=== PATIENT | female | born 1950 | race Caucasian/White ===

== ENCOUNTER 2020-10-04 13:39 | Observation (INO) ==
[2020-10-04 14:43] LABS: Hematocrit 32.5 % (35.3-44.9); Hemoglobin 10.6 g/dL (11.5-15.4); Mean Corpuscular HGB Conc 32.6 g/dL (31.6-35.5); Mean Corpuscular Hemoglobin 29.9 pg (28.0-33.3); Mean Corpuscular Volume 91.5 fL (83.0-100.0); Mean Platelet Volume 9.1 fL (9.4-12.4); Platelet Count 435 K/mcL (140-400); Red Blood Count 3.55 M/mcL (3.82-4.97); Red Cell Distribution Width 15.5 % (11.5-14.5)
[2020-10-04 15:04] LABS: BUN/Creatinine Ratio 21 (6-26); Blood Urea Nitrogen 24 mg/dL (8-23); Calcium 9.3 mg/dL (8.6-10.3); Carbon Dioxide 22 mEq/L (23-29); Chloride 107 mEq/L (98-107); Glucose 116 mg/dL (70-105); Osmolality,Calculated 287 (280-300); Potassium 4.6 mEq/L (3.5-5.1); Sodium 136 mEq/L (136-145); eGFR For African Americans 56 (> 60); eGFR For Non-African Americans 46 (> 60)
[2020-10-04 15:12] LABS: Troponin I < 0.03 ng/mL (< 0.04)
[2020-10-04 16:49] LABS: Bacteria,Urine Few per hpf (None-Few); Bilirubin,Urine Negative (Negative); Blood,Urine Negative (Negative); Clarity,Urine Clear (Clear); Color,Urine Light-Yellow (Yellow); Glucose,Urine (UA) Normal (Normal); Ketones,Urine Negative (Negative); Leukocyte Esterase,Urine Negative (Negative); Mucus,Urine Few per lpf (None-Few); Nitrite,Urine Positive (Negative); Protein,Urine Negative (Neg-Trace); RBC,Urine 0-3 per hpf (0-3); Specific Gravity,Urine 1.013 (1.010-1.025); Squamous Epithelial Cell,Urine Few per hpf (None-Few); Urobilinogen,Urine Normal (Normal)
[2020-10-04] MEDS ORDERED: Naloxone 0.4 MG/ML INJ IVP PRN (17:26)
[2020-10-04] MEDS ORDERED: Acetaminophen 325 MG TABLET PO PRN (17:56)
[2020-10-04] MEDS ORDERED: Perflutren Lipid Microsphere 1.3 ML in 0.9 % Sodium Chloride 8.7 ML IVP PRN (18:03)
[2020-10-04] MEDS: cefTRIAXone 1,000 MG in Water for inj. (sterile) 10 ML IVP SCH (18:30)
[2020-10-04] MEDS: Aspirin 81 MG TAB.CHEW PO SCH (18:31)
[2020-10-04] MEDS: Nicotine 7 MG PATCH.TD24 TD SCH ×2 (18:31→20:56)
[2020-10-04] MEDS: *HR* HYDROcodone/Acet 5/325 mg TABLET PO PRN (20:56)
[2020-10-05 05:32] LABS: Basophils # 0.1 K/mcL (0.0-0.2); Basophils % 0.7 %; Eosinophils # 0.4 K/mcL (0.0-0.6); Eosinophils % 4.5 %; Hematocrit 30.4 % (35.3-44.9); Hemoglobin 10.2 g/dL (11.5-15.4); Immature Granulocytes % 0.7 % (0-4); Lymphocytes % 35.2 %; Mean Corpuscular HGB Conc 33.6 g/dL (31.6-35.5); Mean Corpuscular Hemoglobin 30.3 pg (28.0-33.3); Mean Corpuscular Volume 90.2 fL (83.0-100.0); Mean Platelet Volume 9.1 fL (9.4-12.4); Monocytes % 11.2 %; Platelet Count 432 K/mcL (140-400); Red Blood Count 3.37 M/mcL (3.82-4.97); Red Cell Distribution Width 15.4 % (11.5-14.5); Segmented Neutrophils % 47.7 %; White Blood Count 8.5 K/mcL (4.3-11.1)
[2020-10-05 05:49] LABS: Calcium 9.1 mg/dL (8.6-10.3); Chol/HDL Ratio 2.2 (0-4.9); Potassium 4.4 mEq/L (3.5-5.1)
[2020-10-05] MEDS: Aspirin 81 MG TAB.CHEW PO SCH (08:53)
[2020-10-05] MEDS: cefTRIAXone 1,000 MG in Water for inj. (sterile) 10 ML IVP SCH (08:53)
[2020-10-05] MEDS ORDERED: Gadolinium Contrast Agent (WT Based) IV PRN (08:59)
[2020-10-05 09:01] LABS: Estimated Average Glucose 131 mg/dl; Hemoglobin A1C 6.2 %
[2020-10-05] MEDS ORDERED: GADOBUTROL 30 MMOL/30 ML VIAL IVP ONE (09:27)
[2020-10-05] MEDS: *HR* HYDROcodone/Acet 5/325 mg TABLET PO PRN ×2 (11:35→21:47)
[2020-10-05] MEDS: Nicotine 21 MG PATCH.TD24 TD SCH (20:37)
[2020-10-06 02:33] VITALS: TEMP 98.3
[2020-10-06] MEDS ORDERED: Melatonin 3 MG TABLET PO SCH (03:00)
[2020-10-06] MEDS: *HR* HYDROcodone/Acet 5/325 mg TABLET PO PRN ×2 (05:53→11:25)
[2020-10-06] MEDS ORDERED: *HR* Enoxaparin 40 MG/0.4 ML SYRINGE SQ SCH (06:00)
[2020-10-06] MEDS: Aspirin 81 MG TAB.CHEW PO SCH (08:17)
[2020-10-06] MEDS: Nicotine 21 MG PATCH.TD24 TD SCH (08:18)
[2020-10-06] MEDS: cefTRIAXone 1,000 MG in Water for inj. (sterile) 10 ML IVP SCH (08:20)
[2020-10-06] MEDS ORDERED: hydroCHLOROthiazide 25 MG TABLET PO SCH (09:00)
[2020-10-06] MEDS ORDERED: lisinopriL 20 MG TABLET PO SCH (09:00)
[2020-10-06 10:35] VITALS: BP 117/78; PULSE 93; O2SAT 97
== END 2020-10-06 15:06 | disposition home or self-care (01) ==
LOC: 3BNU 13:39 → EMEROOARM 13:39 → SUATTDRO 15:56 → 3BNU 17:22
PROVIDERS: ADMIT Internal Medicine; ATTEND Registered Nurse

== ENCOUNTER 2020-12-28 15:12 | Inpatient (IN) ==
[2020-12-28 17:09] LABS: Bacteria,Urine Few per hpf (None-Few); Bilirubin,Urine Negative (Negative); Blood,Urine Negative (Negative); Clarity,Urine Clear (Clear); Color,Urine Light-Yellow (Yellow); Glucose,Urine (UA) Normal (Normal); Ketones,Urine Negative (Negative); Leukocyte Esterase,Urine Small (Negative); Mucus,Urine Few per lpf (None-Few); Nitrite,Urine Negative (Negative); Protein,Urine Negative (Neg-Trace); RBC,Urine 0-3 per hpf (0-3); Specific Gravity,Urine 1.016 (1.010-1.025); Squamous Epithelial Cell,Urine Few per hpf (None-Few); Urobilinogen,Urine Normal (Normal)
[2020-12-28 17:12] LABS: Basophils # 0.1 K/mcL (0.0-0.2); Basophils % 0.7 %; Eosinophils # 0.4 K/mcL (0.0-0.6); Eosinophils % 3.6 %; Hematocrit 38.4 % (35.3-44.9); Hemoglobin 12.5 g/dL (11.5-15.4); Immature Granulocytes % 0.5 % (0-4); Lymphocytes # 3.6 K/mcL (0.6-4.6); Lymphocytes % 35.5 %; Mean Corpuscular HGB Conc 32.6 g/dL (31.6-35.5); Mean Corpuscular Volume 89.1 fL (83.0-100.0); Monocytes # 0.9 K/mcL (0.0-1.3); Monocytes % 8.8 %; Neutrophils # 5.2 K/mcL (1.6-8.9); Platelet Count 416 K/mcL (140-400); Red Blood Count 4.31 M/mcL (3.82-4.97); Red Cell Distribution Width 13.8 % (11.5-14.5); Segmented Neutrophils % 50.9 %; White Blood Count 10.1 K/mcL (4.3-11.1)
[2020-12-28 17:28] LABS: BUN/Creatinine Ratio 16 (6-26); Blood Urea Nitrogen 18 mg/dL (8-23); Calcium 9.7 mg/dL (8.6-10.3); Carbon Dioxide 24 mEq/L (23-29); Chloride 101 mEq/L (98-107); Glucose 101 mg/dL (70-105); Osmolality,Calculated 280 (280-300); Potassium 4.2 mEq/L (3.5-5.1); Sodium 134 mEq/L (136-145); Troponin I < 0.03 ng/mL (< 0.04); eGFR For African Americans 59 (> 60); eGFR For Non-African Americans 48 (> 60)
[2020-12-28] MEDS: Nicotine 21 MG PATCH.TD24 TD SCH (21:07)
[2020-12-28] MEDS ORDERED: Ondansetron ODT 4 MG TAB.RAPDIS SL PRN (22:54)
[2020-12-28] MEDS ORDERED: Naloxone 0.4 MG/ML INJ IVP PRN (22:54)
[2020-12-28] MEDS ORDERED: Acetaminophen 325 MG TABLET PO PRN (22:54)
[2020-12-28] MEDS ORDERED: Melatonin 3 MG TABLET PO PRN (22:54)
[2020-12-28] MEDS ORDERED: Aspirin 81 MG TAB.CHEW PO ONE (23:04)
[2020-12-28] MEDS ORDERED: Perflutren Lipid Microsphere 1.3 ML in 0.9 % Sodium Chloride 8.7 ML IVP PRN (23:06)
[2020-12-28] MEDS ORDERED: Isovue-370 500 ML BOTTLE IVP ONE (23:13)
[2020-12-29] MEDS ORDERED: D5% in Water 1,000 ML IVC PRN (00:21)
[2020-12-29] MEDS ORDERED: *HR* Dextrose 50 % in Water (Syg) 50 ML SYRINGE IVP PRN (00:21)
[2020-12-29] MEDS ORDERED: Dextrose Gel 15 GM/37.5 ML TUBE PO PRN ×2 (00:21)
[2020-12-29 01:27] LABS: Hematocrit 38.5 % (35.3-44.9); Hemoglobin 12.6 g/dL (11.5-15.4); Mean Corpuscular HGB Conc 32.7 g/dL (31.6-35.5); Mean Corpuscular Hemoglobin 29.4 pg (28.0-33.3); Mean Corpuscular Volume 89.7 fL (83.0-100.0); Mean Platelet Volume 9.7 fL (9.4-12.4); Platelet Count 390 K/mcL (140-400); Red Blood Count 4.29 M/mcL (3.82-4.97); White Blood Count 9.4 K/mcL (4.3-11.1)
[2020-12-29 01:37] LABS: Prothrombin Time 11.1 Seconds (9.4-12.1)
[2020-12-29 01:42] LABS: Alanine Aminotransferase 11 Units/L (7-52); Albumin 4.2 g/dL (3.5-5.7); Albumin/Globulin Ratio 1.6 (1.1-2.2); Alkaline Phosphatase 56 Units/L (34-104); Aspartate Amino Transferase 19 Units/L (13-39); BUN/Creatinine Ratio 16 (6-26); Bilirubin,Total 0.5 mg/dL (0.3-1.0); Blood Urea Nitrogen 17 mg/dL (8-23); Calcium 9.8 mg/dL (8.6-10.3); Carbon Dioxide 21 mEq/L (23-29); Chloride 102 mEq/L (98-107); Chol/HDL Ratio 2.1 (0-4.9); Cholesterol 128 mg/dL (< 200); Globulin 2.7 g/dL (2.4-3.5); Glucose 89 mg/dL (70-105); HDL Cholesterol 62 mg/dL (40-59); LDL Cholesterol,Calculated 43 mg/dL (< 100); Magnesium 2.1 mg/dL (1.6-2.6); Osmolality,Calculated 281 (280-300); Phosphorous 3.7 mg/dL (2.7-4.5); Potassium 4.1 mEq/L (3.5-5.1); Sodium 135 mEq/L (136-145); Total Protein 6.9 g/dL (6.4-8.9); Triglycerides 115 mg/dL (< 150); eGFR For African Americans > 60 (> 60); eGFR For Non-African Americans 52 (> 60)
[2020-12-29] MEDS ORDERED: *HR* Heparin 5,000 UNIT/ML VIAL SQ SCH (01:45)
[2020-12-29 01:54] LABS: Thyroid Stimulating Hormone 10.146 mcIU/mL (0.340-5.600)
[2020-12-29 02:04] LABS: Folate 13.2 ng/mL (3.0-16.0)
[2020-12-29] MEDS: 0.9 % Sodium Chloride 1,000 ML IVC SCH ×2 (02:10→12:45)
[2020-12-29 08:52] LABS: Estimated Average Glucose 131 mg/dl; Hemoglobin A1C 6.2 %
[2020-12-29] MEDS: Nicotine 21 MG PATCH.TD24 TD SCH (10:23)
[2020-12-29] MEDS: Aspirin Enteric Coated 81 MG Tablet PO SCH (10:23)
[2020-12-29] MEDS ORDERED: Gabapentin 100 MG CAPSULE PO SCH (21:00)
[2020-12-30 01:16] LABS: Basophils # 0.1 K/mcL (0.0-0.2); Basophils % 0.8 %; Eosinophils # 0.4 K/mcL (0.0-0.6); Eosinophils % 4.4 %; Hematocrit 36.5 % (35.3-44.9); Hemoglobin 11.9 g/dL (11.5-15.4); Immature Granulocytes % 0.3 % (0-4); Lymphocytes # 3.1 K/mcL (0.6-4.6); Lymphocytes % 35.4 %; Mean Corpuscular HGB Conc 32.6 g/dL (31.6-35.5); Mean Corpuscular Hemoglobin 29.5 pg (28.0-33.3); Mean Corpuscular Volume 90.3 fL (83.0-100.0); Monocytes # 0.8 K/mcL (0.0-1.3); Monocytes % 9.1 %; Neutrophils # 4.4 K/mcL (1.6-8.9); Platelet Count 383 K/mcL (140-400); Red Blood Count 4.04 M/mcL (3.82-4.97); Red Cell Distribution Width 13.9 % (11.5-14.5); White Blood Count 8.9 K/mcL (4.3-11.1)
[2020-12-30 01:38] LABS: Calcium 9.1 mg/dL (8.6-10.3)
[2020-12-30 06:42] VITALS: BP 111/75; PULSE 72; TEMP 98.1; O2SAT 94
[2020-12-30] MEDS: Nicotine 21 MG PATCH.TD24 TD SCH (08:26)
[2020-12-30] MEDS: Aspirin Enteric Coated 81 MG Tablet PO SCH (08:26)
== END 2020-12-30 13:26 | disposition home or self-care (01) | DRG 65 ==
LOC: EMEROOARM 15:12 → SUATTDRO 23:33 → 3BNU 23:33
PROVIDERS: ADMIT Internal Medicine; ATTEND Internal Medicine